=== PATIENT | female | born 1995 | race Two or more races ===

== ENCOUNTER 2025-03-22 10:05 | Outpatient (CLI) | payer OTHER | END 2025-03-22 10:08 | disposition home or self-care (01) | LOC: PRENATAL 10:05 | PROVIDERS: ATTEND Obstetrics & Gynecology Maternal & Fetal Medicine | DX: O44.02 Complete placenta previa NOS or without hemorrhage, second trimester (principal); O99.212 Obesity complicating pregnancy, second trimester; Z36.0 Encounter for antenatal screening for chromosomal anomalies; Z3A.20 20 weeks gestation of pregnancy ==